=== PATIENT | female | born 2000 | race Caucasian/White ===

== ENCOUNTER 2022-06-07 13:08 | Observation (INO) | payer MEDICAID, SELFPAY ==
[2022-06-07] VITALS (12 sets, daily range): BP systolic 131–149; BP diastolic 71–90; PULSE 84–90; TEMP 36.6–36.8; O2SAT 100; BMI 37.3
--- NOTE | ~2022-06-07 | US_ITS ---
EXAMINATION: US abdomen limited DATE: 06/07/2022 15:27 INDICATION: Right upper quadrant pain TECHNIQUE: Multiple grayscale and Doppler ultrasound images of limited portions of the abdomen were o btained. COMPARISON: None available FINDINGS: Pancreas not visualized. The liver is normal with normal echogenicity and echotexture. No s urface nodularity. Normal hepatopetal flow in the main portal vein. The gallbladder is normal with no abnormal wall thickening, pericholecystic fluid or stones. The normal common bile duct measures 6 mm . There was no sonographic Fuentes sign. IMPRESSION: 1. Pancreas not visualized, otherwise normal right upper quadrant ultrasound findings. Reviewed, dictated and finalized at location K. IMPRESSION: 1. Pancreas not visualized, otherwise normal right upper quadrant ultrasound fi ndings.
--- NOTE | 2022-06-07 13:50 | OBADM ---
This patient, Jeny Carlos, admitted to the OB room 115 for observation. Patient/family oriented to hospital policies and general routines including ID bracelet, bed and alarms, visiting hours, pain management, procedures, bathroom and other care routines, personal items, smoking policy, room service/diet, and visiting hours. Patient/Family are encouraged to report perceived risks to care and to ask questions if they do not understand what they are told or what they should do.
[2022-06-07 14:01] LABS: Appearance Urine Cloudy (Clear); Bilirubin Urine 1+ (Negative); Blood Urine Negative (Negative); Color Urine Yellow (Yellow); Glucose Urine UA Negative (Negative); Ketones Urine 4+ mg/dL (Negative); Leukocyte Esterase Ur Trace LEU/UL (Negative); Nitrate Urine Negative (Negative); Protein Urine 1+ mg/dL (Negative); Specific Grav Ur >= 1.030 (1.001-1.035); pH Urine 6.5 (5.0-9.0)
[2022-06-07 14:09] LABS: Bacteria Urine Trace /hpf; Mucus Urine Heavy /lpf; Squamous Epithelial Cell Urine Moderate /hpf (Few)
[2022-06-07 14:10] LABS: Add Urine Microscopic? YES
[2022-06-07 14:43] LABS: Basophils Percent Auto 0.2 % (0.2-1.2); Eosinophils Percent Auto 0.1 % (0-4.4); Hematocrit 26.3 % (37.0-47.0); Hemoglobin 7.5 g/dL (12.0-15.0); Immature Granulocyte Absolute 0.15 K/mm3 (0.00-0.031); Immature Granulocyte Percent A 0.8 % (0-0.5); Lymphocytes Absolute Auto 1.55 K/mm3 (0.9-3.2); Lymphocytes Percent Auto 8.6 % (18.3-44.2); Mean Corpuscular HGB Conc 28.5 g/dl (32-36); Mean Corpuscular Hemoglobin 20.9 pg (26-34); Mean Corpuscular Volume 73.3 fl (80-100); Mean Platelet Volume 9.3 fl (7.4-10.4); Monocytes Absolute Auto 0.8 K/mm3 (0.1-0.6); Monocytes Percent Auto 4.2 % (2.6-8.5); Neutrophils Absolute Auto 15.5 K/mm3 (1.3-6.7); Neutrophils Percent Auto 86.1 % (45.5-73.1); Platelet Count Result 350 k/mm3 (150-375); Red Blood Count 3.59 M/mm3 (4.2-5.4); Red Cell Distribution Width 18.1 % (11.5-14.5)
[2022-06-07 14:50] LABS: Platelet Estimate Adequate (Adequate)
[2022-06-07 14:51] LABS: Hypochromasia 1+ (NORMAL); Microcytosis 1+ (NORMAL); Ovalocytes 1+ (NORMAL)
[2022-06-07 14:53] LABS: Alanine Aminotransferase 9 U/L (6-35); Albumin Level 3.6 g/dL (3.5-5.1); Alkaline Phosphatase 150 U/L (38-126); Anion Gap 9 mmol/L (8-16); Aspartate Amino Transferase 17 U/L (14-36); Bilirubin,Total 0.4 mg/dL (0.2-1.3); Blood Urea Nitrogen 6 mg/dL (7-17); Calcium 8.6 mg/dL (8.4-10.2); Carbon Dioxide 21 mmol/L (22-30); Chloride 106 mmol/L (98-107); Estimated CRCL calculation 176 ml/min; Estimated Glomerular Filt Rate > 60; Glucose 95 mg/dL (65-110); Potassium 3.5 mmol/L (3.4-5.0); Sodium 136 mmol/L (137-145)
[2022-06-07] MEDS: fentaNYL CITRATE INJ (*CRX) 100 MCG/2 ML VIAL 25 MCG IV PUSH (14:57)
[2022-06-07] MEDS: HYDROcodone/acetaminophen (*CRX) 5-325 MG TABLET 1 TAB PO (15:43)
[2022-06-07] MEDS: DEXTROSE 5%/LACTATED RINGERS 1,000 ML 999 ML IV CONT (16:15)
--- NOTE | 2022-06-07 17:15 | PC.NURSE ---
CT notified pt declining CT at this time.
[2022-06-07] MEDS: DEXTROSE 5%/LACTATED RINGERS 1,000 ML 150 ML IV CONT (17:18)
[2022-06-07] MEDS: CYCLOBENZAPRINE HCL 10 MG TABLET PO (17:35)
--- NOTE | 2022-06-07 19:23 | PM.IMHP ---
H&P: HPI History of Present Illness Date/Time: 06/07/22 19:23 Chief Complaint: Flank/epigastric pain Narrative: this patient is a 22-year-old multiparous female who presented for severe flank and epigastric pain. She reported gradual onset of severe pain today. It is radiates from her back to her epigastrium. it is constant. It is a cramping burning sensation. She rates it a 10/10. She denies any contractions. She denies any vaginal bleeding or loss of fluid. She reports good Review of Systems Review of Systems: All systems reviewed & are unremarkable except as noted in HPI and below Constitutional: Constitutional: Denies chills, Denies fatigue, Denies fever(s) and Denies weakness Eyes: Eyes: Denies blurry vision, Denies change in vision, Denies loss of peripheral vision, Denies loss of vision, Denies other visual disturbances and Denies eye pain ENT: Denies vertigo, Denies dizziness, Denies hearing loss, Denies mouth pain, Denies nasal obstruction, Denies neck mass and Denies neck pain Cardiovascular: Cardiovascular: Denies chest pain, Denies diaphoresis, Denies syncope, Denies leg edema and Denies dyspnea Respiratory: Respiratory: Denies chest congestion, Denies cough, Denies hemoptysis, Denies dyspnea and Denies wheezing Gastrointestinal: Gastrointestinal: Denies abdominal pain, Denies constipation, Denies diarrhea, Denies nausea and Denies vomiting Genitourinary: Genitourinary: Denies hematuria, Denies change in libido, Denies nocturia, Denies genital lesions, Denies flank pain and Denies urinary urgency Musculoskeletal: Musculoskeletal: Denies abnormal gait, Denies back pain, Denies myalgias, Denies arthralgias, Denies joint swelling, Denies muscle weakness and Denies neck pain Integumentary/Breasts: Skin/Breast: Denies swelling, Denies breast pain, Denies breast mass, Denies dry skin, Denies nipple discharge, Denies unusual bruising and Denies jaundice Neurologic: Denies Neuro-related abnormal movements, Denies Abnormal speech present, Denies abnormal gait, Denies behavioral changes, Denies confusion, Denies vertigo, Denies dizziness, Denies syncope, Denies loss of vision, Denies memory loss, Denies convulsions and Denies weakness Psychiatric: Psychiatric: Denies abnormal sleep pattern, Denies behavioral changes, Denies change in libido, Denies confusion, Denies depression, Denies anhedonia and Denies memory loss Endocrine: Endocrine: Reports no additional endocrine complaints, Denies change in libido and Denies fatigue Hematologic/Lymphatic: Hematologic/Lymphatic: Reports no additional hematologic/lymphatic complaints Allergic/Immunologic: Allergic/Immunologic: Reports no additional allergic/immunologic complaints and Denies wheezing Meds Home Medications and Allergies Home Medications Medication Instructions Recorded Confirmed Type acetaminophen 500 mg tablet 1,000 mg PO Q6H PRN Pain 06/07/22 06/07/22 History (Tylenol Extra Strength) cyclobenzaprine 10 mg tablet 10 mg PO TID #20 tabs 06/07/22 Rx ferrous sulfate 325 mg (65 mg 325 mg PO DAILY 06/07/22 06/07/22 History iron) tablet ondansetron 8 mg disintegrating 8 mg PO Q8H PRN Nausea And Vomiting 06/07/22 06/07/22 History tablet pantoprazole 40 mg tablet,delayed 40 mg PO DAILY PRN Reflux 06/07/22 06/07/22 History release vit no.95-ferrous 1 tablet PO DAILY 06/07/22 06/07/22 History fumarate 28 mg-folic acid 800 mcg tablet () Allergies Allergy/AdvReac Type Severity Reaction Status Date / Time No Known Allergies Allergy Verified 06/07/22 14:11 Vital Signs Vital Signs - 24 hr 06/07/22 13:54 06/07/22 13:40 06/07/22 14:01 Temperature 98.2 F Pulse Rate 90 87 Blood Pressure 149/85 H 146/85 H Pulse Oximetry Oxygen Delivery Room Air 06/07/22 14:16 06/07/22 16:20 06/07/22 17:01 Temperature 98 F Pulse Rate 89 84 86 Blood Pressure 145/85 H 138/90 142/71 H Pulse Oximetry Oxygen Delive
== END 2022-06-07 20:00 | disposition home or self-care (01) ==
PROVIDERS: Admitting Provider Obstetrics & Gynecology; Visit Provider Obstetrics & Gynecology
DX: O26.893 Other specified pregnancy related conditions, third trimester (principal); R10.13 Epigastric pain; Z3A.35 35 weeks gestation of pregnancy
CPT/HCPCS: 36415; 76705; 80053; 81001; 85025; 87086; 87088; 96361; 96365; 96375; A9270; G0378; G0379; J0696; J3010; J7121